=== PATIENT | female | born 1935 | race Caucasian/White ===

== ENCOUNTER 2016-10-28 15:24 | Inpatient (IN) | payer OTHER ==
--- NOTE | ~2016-10-28 | HP ---
History And Physical [id number] [place]. [address] NAME: BEN EDMONDS : 35 STATUS : ADM IN PAT#: [id number] AGE: 81 ADM/REG DATE : 10/28/16 MR#: [id number] REPORT SERV DATE: 10/28/16 DICTATED BY: LANDRY JAMISON DATE: 10/28/16 REPORT STATUS : Draft TRANSCRIBED BY: MODL DATE: 10/28/16 DATE OF ADMISSION: 10/28/2016 CHIEF COMPLAINT: Explosive intractable diarrhea and abdominal cramps. The patient is admitted from her primary care office Dr. Yves Pepper. HISTORY OF PRESENT ILLNESS: The patient states that approximately four weeks ago she began having diarrhea and abdominal cramps that was persistent. She would go some five to six times a day. She reports that she had one episode of nausea and vomiting but has not had any nausea and vomiting for several weeks. Her stool would have mucus and blood in it. She saw her primary care Dr. Yves Pepper for these complaints, but was not initially started on any type of treatment. Then she went back to the primary care office last on 10/21/2016, and was started on antibiotic therapy of Levaquin and Flagyl and has been taking that ever since with no improvement in her symptoms of diarrhea but since then has only been taking clear liquids and she says the cramps have gotten some better as she has not been eating any solid food. She reports an approximate seven-pounds weight loss over the course of the past four weeks as well. She also relates that she has had some trouble with irritable bowel syndrome in the past and has had on and off episodes of problems with diarrhea. She did not take any qoob-hmp-zsflisg medicines during this past four-week time frame. She states that she has been on Levsin prescription in past episodes of diarrhea, but does not note that this made much of a difference in her symptoms. She denies any travel outside of the [place]. Has had no changes in her current medication regimen. She states that her daughter did have a "GI bug" several weeks ago, but her daughter's diarrhea has since resolved. She had stool studies initiated on the 10/26/2016 including a C. difficile which was negative. A gastric culture is in progress. Hemoccult was negative and leukocyte were also negative at that time. She also denies any shortness of breath. Denies any chest pain. Has been ambulatory at home and has no significant decline in her functional status. PAST MEDICAL HISTORY: Includes hypothyroidism, some diabetes type 2, hypertension, hyperlipidemia, mitral regurgitation, irritable bowel syndrome, history of CVA in the 1970s, chronic UTIs approximately one to two years ago, history of heart failure. PAST SURGICAL HISTORY: Includes cataract surgery, cardiac stents x2, hernia repair, hysterectomy, and tonsillectomy. FAMILY HISTORY: Mother with leukemia. Father with kidney cancer and emphysema. Sister with thyroid cancer. Her primary care is Dr. Pepper; latin teacher Dr. Cabrales. SOCIAL HISTORY: She denies any tobacco or alcohol use. ALLERGIES: SHE STATES SHE HAS ALLERGIES TO CODEINE AND MORPHINE. CODEINE RASH, MORPHINE STOPPED BREATHING. History And Physical [address] [address] NAME: BEN EDMONDS : 35 STATUS : ADM IN [facility]#: [id number] AGE: 81 ADM/REG DATE : 10/28/16 MR#: [id number] REPORT SERV DATE: 10/28/16 DICTATED BY: LANDRY JAMISON DATE: 10/28/16 REPORT STATUS : Draft TRANSCRIBED BY: TERESA DATE: 10/28/16 REVIEW OF SYSTEMS: Negative except for pertinent mentioned in the HPI. PHYSICAL EXAMINATION: VITAL SIGNS: Temperature of 96.8, pulse rate of 87, respiratory rate of 16, blood pressure of 150/71. She has 96% O2 saturation on room air. GENERAL: She is alert and oriented for this exam. No appreciable focal deficits, cooperative, awake, in no acute distress. No appreciable lymphadenopathy is palpated on posterior or anterior cervical chains. Normal thyroid. LUNGS: On palpation, lungs are clear to auscultation bilaterally. Normal respiratory effort as stated on room air. CARDIOVASCULAR: No murmurs, rubs, or gallops appreciated on auscultation of the chest wall. Regular rate and rhythm and she is normal sinus rhythm per the heart monitor. EXTREMITIES: No edema in lower extremities. Normal distal pulses. NEUROLOGIC: PERRLA is noted. Sclerae are clear, otherwise. SKIN: Warm and dry. No wounds noted on assessment of skin. GENITOURINARY: She does state a past medical history of chronic UTIs. ABDOMEN: Mildly tender to palpation in the right upper quadrant. Active bowel sounds. Otherwise, soft and no appreciable organomegaly is palpated. ASSESSMENT: 1. Intractable diarrhea with some blood in the stool. 2. Weight loss. 3. Diabetes, type 2. 4. Hypothyroidism. 5. Hypertension. 6. Hyperlipidemia. 7. History of irritable bowel syndrome. 8. History of cerebrovascular accident. 9. History of chronic urinary tract infection. PLAN: We will add WelChol to her regimen. At this point, we will start some maintenance IV fluids. We will obtain lab work including CBC, CMP, TSH, Mag, hemoglobin A1c, iron studies, UA. We will Hemoccult this current stool. Add p.r.n. hydralazine to her current medication regimen. We will hold her metformin at this time as this could be contributed, although the patient has been on it for some time and further workup and imaging perhaps will be ordered pending this initial lab work testing that is done. I have updated the patient's daughter and at bedside and they are in agreement with this plan going forward. MAGALI/TERESA Landry Jamison NP / [id number] History And Physical [address] [address] NAME: BEN EDMONDS : 35 STATUS : ADM IN [facility]#: [id number] AGE: 81 ADM/REG DATE : 10/28/16 MR#: [id number] REPORT SERV DATE: 10/28/16 DICTATED BY: LANDRY JAMISON DATE: 10/28/16 REPORT STATUS : Draft TRANSCRIBED BY: MODL DATE: 10/28/16 CC: Ashwin Guzman M.D. [facility]
--- NOTE | ~2016-10-28 | DS ---
Discharge Summary [facility] [address] [place]. [address] NAME: BEN EDMONDS : 35 STATUS : DIS IN PAT#: [id number] AGE: 81 ADM/REG DATE : 10/28/16 MR#: [id number] REPORT SERV DATE: 11/02/16 DICTATED BY: LANDRY JAMISON DATE: 11/01/16 REPORT STATUS : Draft TRANSCRIBED BY: MODL DATE: 11/01/16 ADMISSION DATE: 10/28/2016 DISCHARGE DATE: 11/01/2016 DISCHARGE DIAGNOSES: 1. Chronic diarrhea, history of irritable bowel syndrome. 2. Abdominal cramps and weight loss approximately 7 pounds in 4 weeks. 3. Diabetes type 2, hemoglobin A1c 6.2. 4. Hypertension. 5. History of cerebrovascular accident. 6. History of coronary artery disease and stenting. 7. Hypothyroidism. DISCHARGE MEDICATIONS: Aspirin 81 mg daily, WelChol 1875 mg p.o. twice a day prescription was written, Plavix 75 mg daily, levothyroxine 50 mcg daily, Procardia XL 90 mg daily, Diovan 320 mg daily, Ditropan 5 mg at bedtime, simvastatin 40 mg at bedtime, nitroglycerin 0.4 mg sublingual p.r.n., Imodium p.r.n. HISTORY OF PRESENT ILLNESS: This is an 81-year-old, white female, who presented with intractable diarrhea and abdominal cramps approximately four weeks, was a direct admission from her primary care, Dr. Yves Pepper's office. Please see my initial H and P as the patient admitted to the Hospitalist Service for further evaluation and treatment. CONSULTS DURING THIS ADMISSION: GI, Dr. Yves Bartlett. PROCEDURES AND IMAGING DURING THIS ADMISSION: CT of the abdomen and pelvis that showed no evidence of any inflammation on the lining of the colon. No acute GI or obstruction and evidence of some coronary artery disease. A colonoscopy performed on 11/01/2016 showing diverticulosis of the sigmoid colon, descending colon, internal hemorrhoids. Biopsies were obtained. HOSPITAL COURSE: The patient continued to have some episodes of loose stools and diarrhea with some small amounts of blood. Initially, she was placed on WelChol and her metformin was placed on hold as well. Lab work was followed initially which did not show any significant acute kidney injury or dehydration but she did have persistent loose stools and diarrhea. She was given some IV hydration via Lactated Ringer's and GI, Dr. Yves Bartlett, saw the patient, recommended CT scan for further assessment as described above and recommended colonoscopy as described above afterwards. The patient has continued to improve in the past 24 hours and was felt safe for discharge home on 11/01/2016 with the above medication regimen. Outpatient followup with Dr. Yves Bartlett. We will keep the patient off metformin. We will keep her off hydrochlorothiazide. At this time, instructed to keep her regularly scheduled followups with Cardiology. Follow up with primary care as needed. I have discussed this at length with the patient and the patient's family at bedside. Questions were answered. Please note greater 30 minutes was spent on this discharge for followup planning, medication Discharge Summary [address] [address] NAME: BEN EDMONDS : 35 STATUS : DIS IN PAT#: [id number] AGE: 81 ADM/REG DATE : 10/28/16 MR#: [id number] REPORT SERV DATE: 11/02/16 DICTATED BY: LANDRY JAMISON DATE: 11/01/16 REPORT STATUS : Draft TRANSCRIBED BY: TERESA DATE: 11/01/16 teaching, and further disposition. [facility] Landry Jamison NP / [id number] CC: Ashwin Guzman M.D. [facility] RECORD
--- NOTE | ~2016-10-28 | EGD ---
EGD REPORT [facility] [address] [address] NAME: BEN EDMONDS : 35 STATUS : ADM IN PAT#: [id number] AGE: 81 ADM/REG DATE : 10/28/16 MR#: [id number] REPORT SERV DATE: 11/01/16 DICTATED BY: BERT WATTS DATE: 11/01/16 REPORT STATUS : Draft TRANSCRIBED BY: [facility] DATE: 11/01/16 Endoscopy Center Patient Name: Ben Edmonds Date of : 1935 Attending MD: BERT WATTS MD Procedure Date No Time: 11/01/2016 Procedure: Colonoscopy Indications: Abdominal pain in the left lower quadrant, Clinically significant diarrhea of unexplained origin, Rectal bleeding Medicines: as per anesthesia Complications: No immediate complications. Procedure: Pre-Anesthesia Assessment: - ASA Grade Assessment: III - A patient with severe systemic disease. After I obtained informed consent, the scope was passed under direct vision. Throughout the procedure, the patient's blood pressure, pulse, and oxygen saturations were monitored continuously. The PCF [id number] was introduced through the anus and advanced to the cecum, identified by appendiceal orifice and ileocecal valve. The colonoscopy was performed without difficulty. The patient tolerated the procedure. The quality of the bowel preparation was fair. Findings: The perianal and digital rectal examinations were normal. A few small and large-mouthed diverticula were found in the sigmoid colon and in the descending colon. Internal hemorrhoids were found during endoscopy and were mild. Four biopsies were obtained in the rectum and in the transverse colon with cold forceps for histology. Impression: - Diverticulosis in the sigmoid colon and in the descending colon. - Internal hemorrhoids. - Four biopsies were obtained in the rectum and in the transverse colon. Recommendation: - Await pathology results. Procedure Code(s): --- Professional --- 43943, Colonoscopy, flexible, proximal to splenic flexure; with biopsy, single or multiple EGD REPORT [facility] [address] [place], [place] [address] [place]. [address] NAME: BEN EDMONDS : 35 STATUS : ADM IN [facility]#: [id number] AGE: 81 ADM/REG DATE : 10/28/16 MR#: [id number] REPORT SERV DATE: 11/01/16 DICTATED BY: BERT WATTS. DATE: 11/01/16 REPORT STATUS : Draft TRANSCRIBED BY: [employer] DATE: 11/01/16 Diagnosis Code(s): --- Professional --- K64.8, Other hemorrhoids K57.30, Diverticulosis of large intestine without perforation or abscess without bleeding R10.32, Left lower quadrant pain R19.7, Diarrhea, unspecified K62.5, Hemorrhage of anus and rectum CPT copyright 2013 [employer]. All rights reserved. The codes documented in this report are preliminary and upon certified professional coder review may be revised to meet current compliance requirements. BERT WATTS MD 11/01/2016 1:31 PM This report has been signed electronically. Number of Addenda: 0 Note Initiated On: 11/01/2016 12:49 PM Scope Withdrawal Time 0 hours 0 minutes 0 seconds [address] [facility] [place] [address]
--- NOTE | ~2016-10-28 | CN ---
Consultation Report [place] [address] [facility] [place]. [address] NAME: BEN EDMONDS : 35 STATUS : ADM Daniel PAT#: [id number] AGE: 81 ADM/REG DATE : 10/28/16 MR#: [id number] REPORT SERV DATE: 10/29/16 DICTATED BY: BERT WATTS DATE: 10/29/16 REPORT STATUS : Draft TRANSCRIBED BY: MODL DATE: 10/29/16 CONSULTATION DATE OF CONSULTATION: 10/29/2016 HISTORY OF PRESENT ILLNESS: This is an 81-year-old white female with five-week history of chronic diarrhea associated with periumbilical and lower abdominal cramping, associated mainly with meals. Has also had some bleeding, is on Plavix. Had two coronary stents placed almost year ago. Has had an MA in the past. Has also had some weight loss and some bleeding as mentioned. The patient is diabetic. Some history of GERD, hypothyroidism. Has had a CVA in the past. Stool studies today have been negative. Has had hysterectomy, rectocele, cystocele, T and A, a left inguinal hernia repair. SOCIAL HISTORY: Former smoker. Negative for EtOH. FAMILY HISTORY: Negative for colon cancer. LABORATORY DATA: White count 8700, hemoglobin 12.5, platelets 235,000. PHYSICAL EXAMINATION: GENERAL: Well-developed, well-nourished white female, alert and oriented x3. HEENT: Anicteric. NECK: Negative. CHEST: Clear to percussion. HEART: Regular rate and rhythm without murmur or gallop. ABDOMEN: Soft and nontender. Bowel sounds present. EXTREMITIES/NEUROLOGIC: Grossly intact. ASSESSMENT: 1. Five-week history of abdominal pain with meals, associated with diarrhea. Some bleeding, on Plavix. Weight loss. Stool studies negative today. Past history of diverticular disease and hemorrhoids on colonoscopy in 2011. 2. Coronary artery disease, status post stent x2, on Plavix. 3. Cerebrovascular accident. 4. Hypothyroidism. 5. Diabetes mellitus. SUGGESTIONS: 1. We will check CT to rule out ischemic changes in the colon. 2. We will hold Plavix if okay with others. 3. We will check colonoscopy early next week. Dr. Garcia on-call this weekend. Thank you very much for consultation. Consultation Report [place] [address] [facility] [place]. [address] NAME: BEN EDMONDS : 35 STATUS : ADM Daniel PAT#: [id number] AGE: 81 ADM/REG DATE : 10/28/16 MR#: [id number] REPORT SERV DATE: 10/29/16 DICTATED BY: BERT WATTS DATE: 10/29/16 REPORT STATUS : Draft TRANSCRIBED BY: MODL DATE: 10/29/16 DC/MODL Bert Watts M.D. / [id number] CC: Ashwin Guzman M.D. [facility]
[~2016-10-28 15:24] MED LIST: ALEVE220 MG PO; ASA5GR PO; CRANBERRY1 TAB OR; DIOVAN HC1 PO; DITROXL5 PO; FORTAMET500 MG PO; LEVOTHYROXIN50 MCG PO; MULTIPLE VIT PO; PRILO PO; VITAMIN D31000 UNIT PO; ZOCOR40 PO
[2016-10-28] MEDS ORDERED: NXL9 PO (16:58)
[2016-10-28] MEDS ORDERED: PLAVIX PO (16:58)
[2016-10-28] MEDS ORDERED: DIOVAN320 MG PO (16:59)
[2016-10-28] MEDS ORDERED: LEVOTHYROXIN50 MCG PO (17:00)
[2016-10-28] MEDS ORDERED: DITROXL5 PO (17:01)
[2016-10-28] MEDS ORDERED: FORTAMET500 MG PO (17:01)
[2016-10-28] MEDS ORDERED: ZOCOR40 PO (17:02)
[2016-10-28] MEDS ORDERED: HYDROCHLOROT25 MG PO (17:03)
[2016-10-28] MEDS ORDERED: FLAG500TAB PO (17:03)
[2016-10-28] MEDS ORDERED: LEVAQUIN750 MG PO (17:03)
[2016-10-28] MEDS ORDERED: NITROSTAT0.4 MG SL (17:04)
[2016-10-28] MEDS ORDERED: ASAB PO (17:04)
[2016-10-28 18:15] LABS: BASOPHILS 0.9 %; BASOPHILS ABSOLUTE 0.08 10/3/uL (0.0-0.16); EOSINOPHILS 0.8 %; EOSINOPHILS ABSOLUTE 0.07 10/3/uL (0.0-0.53); HEMOGLOBIN 12.5 g/dL (12.0-16.0); IMMATURE GRANULOCYTES 0.2 %; IMMATURE GRANULOCYTES ABSOLUTE 0.02 10/3/uL (0.0-0.11); LYMPHOCYTES 26.4 %; MEAN CORPUSCULAR HEMOGLOB 30.8 pg (26.0-34.0); MEAN PLATELET VOLUME 10.1 fL (9.2-13.0); MONOCYTES 5.8 %; MONOCYTES ABSOLUTE 0.51 10/3/uL (0.21-1.20); NEUTROPHILS 65.9 %; NEUTROPHILS ABSOLUTE 5.74 10/3/uL (2.02-8.40); PLATELET COUNT 239 10/3/uL (150-400); RBC DISTRIBUTION WIDTH 14.9 % (12.0-16.0); RED CELL COUNT 4.06 10/6/uL (4.0-5.6); WHITE BLOOD CELLS 8.7 10/3/uL (4.5-10.5)
[2016-10-28 18:16] LABS: HEMATOCRIT 36.8 % (36.0-48.0); MANUAL DIFF NO %; MEAN CORPUSCULAR VOLUME 90.6 fL (80-100)
[2016-10-28 18:40] LABS: A/G RATIO 0.9 (0.7-1.9); ALBUMIN 3.6 G/DL (3.5-5.0); CALCIUM, SERUM 8.2 MG/DL (8.5-10.4); CHLORIDE, SERUM 105 MMOL/L (96-112); CREATININE 1.06 MG/DL (0.55-1.02); FERRITIN 13 NG/ML (8-252); GFR AFRICAN AMERICAN 57 ML/MIN (>=60); GFR NON AFRICAN AMERICAN 49 ML/MIN (>=60); GLOBULIN 3.8 G/DL (2.5-4.1); GLUCOSE, SERUM 102 MG/DL (60-99); IRON BINDING CAPACITY 290 MCG/DL (225-410); IRON, SERUM 43 MCG/DL (35-150); POTASSIUM, SERUM 3.9 MMOL/L (3.5-5.3); SGOT(AST) 16 U/L (5-40); SGPT(ALT) 14 U/L (5-65); SODIUM, SERUM 140 MMOL/L (135-148); TOTAL BILIRUBIN 0.4 MG/DL (0-1.2); TOTAL PROTEIN 7.4 G/DL (6.0-8.5)
[2016-10-28 18:46] LABS: ALKALINE PHOSPHATASE 54 U/L (45-117); BUN (BLOOD UREA NITROGEN) 19 MG/DL (6-23); CO2 (CARBON DIOXIDE) 21 MMOL/L (24-34)
[2016-10-29 07:51] LABS: ASCORBIC ACID (UR NOT ORDER) NEG (NEG); BILIRUBIN, URINE NEGATIVE (NEG); KETONE, URINE 20 MG/DL (NEG); LEUKOCYTE ESTERASE(NOT OR SMALL (NEG); WBC (NOT ORDERED) (RFLEX) 10 (0-5)
[2016-10-31 07:07] LABS: BASOPHILS 0.8 %; BASOPHILS ABSOLUTE 0.05 10/3/uL (0.0-0.16); EOSINOPHILS 4.6 %; EOSINOPHILS ABSOLUTE 0.29 10/3/uL (0.0-0.53); HEMOGLOBIN 10.9 g/dL (12.0-16.0); LYMPHOCYTES 46.8 %; LYMPHOCYTES ABSOLUTE 2.93 10/3/uL (0.67-4.30); MEAN CORPUS HGB CONC 33.7 g/dL (32.0-36.0); MEAN CORPUSCULAR HEMOGLOB 30.5 pg (26.0-34.0); MEAN CORPUSCULAR VOLUME 90.5 fL (80-100); MONOCYTES 7.3 %; MONOCYTES ABSOLUTE 0.46 10/3/uL (0.21-1.20); NEUTROPHILS 40.5 %; NEUTROPHILS ABSOLUTE 2.53 10/3/uL (2.02-8.40); PLATELET COUNT 182 10/3/uL (150-400); RBC DISTRIBUTION WIDTH 15.1 % (12.0-16.0); RED CELL COUNT 3.57 10/6/uL (4.0-5.6); WHITE BLOOD CELLS 6.3 10/3/uL (4.5-10.5)
[2016-10-31 07:12] LABS: HEMATOCRIT 32.3 % (36.0-48.0); MANUAL DIFF NO %
[2016-10-31 07:22] LABS: CALCIUM, SERUM 8.1 MG/DL (8.5-10.4); CHLORIDE, SERUM 109 MMOL/L (96-112); CO2 (CARBON DIOXIDE) 24 MMOL/L (24-34); GFR AFRICAN AMERICAN 94 ML/MIN (>=60); GFR NON AFRICAN AMERICAN 81 ML/MIN (>=60); GLUCOSE, SERUM 94 MG/DL (60-99); POTASSIUM, SERUM 3.5 MMOL/L (3.5-5.3); SODIUM, SERUM 144 MMOL/L (135-148)
[2016-10-31 07:23] LABS: BUN (BLOOD UREA NITROGEN) 4 MG/DL (6-23)
[2016-11-01 05:58] LABS: BASOPHILS ABSOLUTE 0.05 10/3/uL (0.0-0.16); EOSINOPHILS 4.2 %; EOSINOPHILS ABSOLUTE 0.22 10/3/uL (0.0-0.53); HEMATOCRIT 33.9 % (36.0-48.0); HEMOGLOBIN 11.8 g/dL (12.0-16.0); IMMATURE GRANULOCYTES 0.2 %; IMMATURE GRANULOCYTES ABSOLUTE 0.01 10/3/uL (0.0-0.11); MEAN CORPUS HGB CONC 34.8 g/dL (32.0-36.0); MEAN CORPUSCULAR HEMOGLOB 31.3 pg (26.0-34.0); MEAN CORPUSCULAR VOLUME 89.9 fL (80-100); MEAN PLATELET VOLUME 10.1 fL (9.2-13.0); MONOCYTES 6.5 %; MONOCYTES ABSOLUTE 0.34 10/3/uL (0.21-1.20); NEUTROPHILS 44.1 %; NEUTROPHILS ABSOLUTE 2.31 10/3/uL (2.02-8.40); PLATELET COUNT 178 10/3/uL (150-400); RBC DISTRIBUTION WIDTH 15.4 % (12.0-16.0); RED CELL COUNT 3.77 10/6/uL (4.0-5.6); WHITE BLOOD CELLS 5.2 10/3/uL (4.5-10.5)
[2016-11-01 06:06] LABS: MANUAL DIFF NO %
[2016-11-01 06:08] LABS: BUN (BLOOD UREA NITROGEN) 4 MG/DL (6-23); CALCIUM, SERUM 8.3 MG/DL (8.5-10.4); CHLORIDE, SERUM 108 MMOL/L (96-112); CO2 (CARBON DIOXIDE) 25 MMOL/L (24-34); CREATININE 0.66 MG/DL (0.55-1.02); GFR AFRICAN AMERICAN 96 ML/MIN (>=60); GFR NON AFRICAN AMERICAN 83 ML/MIN (>=60); GLUCOSE, SERUM 104 MG/DL (60-99); POTASSIUM, SERUM 3.4 MMOL/L (3.5-5.3); SODIUM, SERUM 144 MMOL/L (135-148)
[2016-11-01] MEDS ORDERED: WELCHOL 625 MG625 MG PO (17:10)
[2016-11-01] MEDS ORDERED: IMOD PO (18:50)
== END 2016-11-01 19:23 | disposition home or self-care (01) | DRG 392 ==
LOC: 6NO 15:24
PROVIDERS: Internal Medicine; Internal Medicine Gastroenterology; Nurse Practitioner Family
PROC: 0DBP8ZX Excision of Rectum, Via Natural or Artificial Opening Endoscopic, Diagnostic (ICD-10-PCS; 2016-11-01)
PROC: 0DBL8ZX Excision of Transverse Colon, Via Natural or Artificial Opening Endoscopic, Diagnostic (ICD-10-PCS; principal; 2016-11-01 13:00)
DX: K58.0 Irritable bowel syndrome with diarrhea (principal); E11.9 Type 2 diabetes mellitus without complications; E03.9 Hypothyroidism, unspecified; K64.8 Other hemorrhoids; K57.30 Diverticulosis of large intestine without perforation or abscess without bleeding; R10.32 Left lower quadrant pain; E78.5 Hyperlipidemia, unspecified; I25.10 Atherosclerotic heart disease of native coronary artery without angina pectoris; R63.4 Abnormal weight loss; I25.2 Old myocardial infarction; Z80.6 Family history of leukemia; Z79.02 Long term (current) use of antithrombotics/antiplatelets; Z68.24 Body mass index [BMI] 24.0-24.9, adult; Z86.73 Personal history of transient ischemic attack (TIA), and cerebral infarction without residual deficits; Z95.5 Presence of coronary angioplasty implant and graft; Z80.0 Family history of malignant neoplasm of digestive organs; Z87.440 Personal history of urinary (tract) infections; Z90.710 Acquired absence of both cervix and uterus
CPT/HCPCS: 74176; 80048; 80053; 81001; 82270; 82272; 82728; 82962; 83036; 83540; 83550; 83735; 84443; 85025; 87045; 87046; 87046-59; 87086; 87177; 87209; 87493; 87493-59; 87899; 87899-59; 88305; 89055; A9270-GY